=== PATIENT | male | born 2000 | race Caucasian/White ===

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

== ENCOUNTER 2023-04-27 09:50 | Emergency (ER) | payer MEDICARE, OTHER ==
[2023-04-27 10:10] VITALS: TEMP 98.9
[2023-04-27] MEDS ORDERED: DIPH,PERTUS(ACELL)TETVAC-LF 0.5 ML VIAL IM ONE (10:14)
[2023-04-27] MEDS ORDERED: ONDANSETRON ODT 4 MG TAB PO STA (10:17)
[2023-04-27] MEDS ORDERED: HYDROcodone/APAP 5-325MG 1 EACH TAB PO STA (10:17)
--- NOTE | 2023-04-27 10:52 | XR ---
EXAMINATION TYPE: XR finger RT DATE OF EXAM: 04/27/2023 COMPARISON: NONE HISTORY: 23-year-old male laceration right thumb, pain TECHNIQUE: 3 views coned down right thumb FINDINGS: Comminuted fracture involving the shaft of the first distal phalanx. There is a shard of bone measuri ng 4 mm Regional displacement into the dorsal soft tissues. Overlying nail bed injury suspected and should be correlated clinically. IMPRESSION: Comminuted fracture involving the shaft of the first distal phalanx. Regional displacement of a 4 mm bone fragment dorsally. Suspect overlying nail bed injury that can be correlated clinically.
[2023-04-27] MEDS ORDERED: ceFAZolin 1,000 MG VIAL (IM USE) IM STA (11:32)
[2023-04-27] MEDS ORDERED: LIDOCAINE 1% INJ 10MG/ML (20 ML MDV) SQ ONE (11:32)
--- NOTE | 2023-04-27 11:48 | ED ---
Wound/Laceration HPI - General Chief Complaint: Wound/Laceration Stated Complaint: IHS-R Hand LAC Time Seen by Provider: 04/27/23 10:07 Source: patient Mode of arrival: ambulatory Limitations: no limitations - History of Present Illness Initial Comments: The patient's a 23-year-old gentleman is otherwise healthy presents emergency room for laceration to the right distal thumb. 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 He has laceration that extends from the medial aspect through the nailbed and across. Patient has limitation with extension and flexion due to pain as well as immobility. Has numbness on the medial aspect and distal aspect of the finger. He is unsure if his tetanus is up-to-date. Patient is left-handed. This happened on the job however there does not have further cardiac testing or other specific evaluations. - Related Data Previous Rx's Medication Instructions Recorded Cephalexin [Keflex] 500 mg PO Q6HR #40 cap 04/27/23 HYDROcodone/APAP 10-325MG [[place] 1 tab PO Q6HR PRN 3 Days #12 tab 04/27/23 10-325] Allergies Allergy/AdvReac Type Severity Reaction Status Date / Time No Known Allergies Allergy Verified 04/27/23 09:58 Review of Systems ROS Statement: Those systems with pertinent positive or pertinent negative responses have been documented in the HPI. ROS Other: All systems not noted in ROS Statement are negative. Past Medical History Past Medical History: No Reported History History of Any Multi-Drug Resistant Organisms: None Reported Past Surgical History: No Surgical Hx Reported Past Psychological History: No Psychological Hx Reported Smoking Status: Never smoker Past Alcohol Use History: None Reported Past Drug Use History: None Reported General Exam Limitations: no limitations General appearance: alert, in no apparent distress Head exam: Present: atraumatic Eye exam: Present: normal appearance Cardiovascular Exam: Present: regular rate Extremities exam: Present: tenderness, other (Decreased sensation in the medial distal aspect of the right fifth finger. There is a 2.9 cm irregular laceration that extends from the medial aspect across the nailbed. No contused tissue. Decreased strength and range of motion with extension of the DIP. ). Absent: full ROM (fairly intact ROM and strength of DIP with flexion.) Neurological exam: Present: alert, oriented X3, CN II-XII intact Psychiatric exam: Present: normal affect, normal mood Skin exam: Present: warm Course Vital Signs 04/27/23 09:58 Temperature 98.9 F Pulse Rate 74 Respiratory 16 Rate Blood Pressure 137/81 O2 Sat by Pulse 100 Oximetry - Reevaluation(s) Reevaluation #1: Patient tolerated laceration repair well. Digital block was successful. His tetanus is updated today. I spoke with Dr. Newman who is on-call for Ortho regarding management of this patient. She recommended the sutures, flushing antibiotics and follow-up in her office this week. I did discuss all this with the patient she agrees upon. He was given the follow-up information. The patient was given IM Ancef in the emergency room prior to discharge. I discussed signs return to the emergency room. He understands [facility] treatment discharge plan. I discussed symptoms workup and disposition with attending ED physician Dr. Nance today. 04/27/23 1301 Procedures - Laceration Laceration #1 Consent Obtained: verbal consent Site: hand (1st distal phalanx) Description: irregular, contaminated Depth: simple, single layer, involves tendon Anesthetic Used: lidocaine 1% Anesthesia Technique: local infiltration, nerve block Pre-repair: irrigated extensively, wound margins revised, extreme cleansing Type of Sutures: nylon Size of Sutures: 4-0 Number of Sutures: 8 Technique: simple, interrupted Complications: bleeding Patient Tolerated Procedure: well Medical Decision Making - Medical Decision Making Was pt. sent in by a medical professional or institution ([facility], [facility], urgent care, hospital, or penitentiary...) When possible be specific @ -[No] Did you speak to anyone other than the patient for history (EMS, parent, family, police, friend...)? What history was obtained from this source @ -Family at bedside Did you review nursing and triage notes (agree or disagree)? Why? @ -[I reviewed and agree with nursing and triage notes] Were old charts reviewed (outside hosp., previous admission, EMS record, old EKG, old radiological studies, urgent care reports/EKG's, penitentiary records)? Report findings @ -[No old charts were reviewed] Differential Diagnosis (chest pain, altered mental status, abdominal pain women, abdominal pain men, vaginal bleeding, weakness, fever, dyspnea, syncope, headache, dizziness, GI bleed, back pain, seizure, CVA, palpatations, mental health, musculoskeletal)? @ -Laceration of the right distal first phalanx, open fracture of the first finger, tetanus vaccination, contusion of the first finger EKG interpreted by me (3pts min.). @ -[As above] X-rays interpreted by me (1pt min.). @ -Comminuted fracture of the right first distal phalanx, open fracture CT interpreted by me (1pt min.). @ -[None done] U/S interpreted by me (1pt. min.). @ -[None done] What testing was considered but not performed or refused? (CT, X-rays, U/S, labs)? Why? @ -[None] What meds were considered but not given or refused? Why? @ -[None] Did you discuss the management of the patient with other professionals (professionals i.e. , PA, LEVELMAN, lab, RT, psych nurse, oncology social work, relief manager, teacher, executive vice president and chief operating officer, showcase maker)? Give summary @ -I spoke with sap specialist carbon paper coating supervisor, Dr Newman, regarding management of this patient and follow up. the finger will be copiously flushed and loose sutures placed. the patient will be sent home with antibiotics and will follow up with Dr Newman this week. Was smoking cessation discussed for >3mins.? @ -[No] Was critical care preformed (if so, how long)? @ -[No] Were there social determinants of health that impacted care today? How? (Homelessness, low income, unemployed, alcoholism, drug addiction, transportation, low edu. Level, literacy, decrease access to med. care, fci, rehab)? @ -[No] Was there de-escalation of care discussed even if they declined (Discuss DNR or withdrawal of care, Hospice)? DNR status @ -[No] What co-morbidities impacted this encounter? (DM, HTN, Smoking, COPD, CAD, Cancer, CVA, ARF, Chemo, Hep., AIDS, mental health diagnosis, sleep apnea, morbid obesity)? @ -[None] Was patient admitted / discharged? Hospital course, mention meds given and route, prescriptions, significant lab abnormalities, going to OR and other pertinent info. @ -[the patient is stable to follow up as an outpatient. the patient will follwo up with dr newman this week in the office. he is written for antibiotics as an outpatient. he understands he is not to work or drive while taking pain medication. ] Undiagnosed new problem with uncertain prognosis? @ -[No] Drug Therapy requiring intensive monitoring for toxicity (Heparin, Nitro, Insulin, Cardizem)? @ -[No] Were any procedures done? @ -[No] Diagnosis/symptom? @ -[Open Fracture of the right 1st finger, comminuted fracture of the right distal phalanx, tetanus vaccination ,laceration of the right 1st finger Acute, or Chronic, or Acute on Chronic? @ -acute Uncomplicated (without systemic symptoms) or Complicated (systemic symptoms)? @ -[default] Side effects of treatment? @ -[No] Exacerbation, Progression, or Severe Exacerbation? @ -[No] Poses a threat to life or bodily function? How? (Chest pain, [place], [place], pneumonia, PE, COPD, DKA, ARF, appy, cholecystitis, CVA, Diverticulitis, Homicidal, Suicidal, threat to staff... and all critical care pts) @ -[yes - Radiology Data Radiology results: report reviewed, image reviewed Disposition Clinical Impression: Open fracture of finger of right hand, Laceration of left thumb, Nailbed injury, Tetanus toxoid vaccination administered at current visit Disposition: HOME SELF-CARE Condition: Fair Instructions (If sedation given, give patient instructions): Diphtheria/Tetanus Vaccine (By injection), Laceration (ED), Finger Fracture (ED), Tendon Laceration (ED) Additional Instructions: keep the finger as dry as possible. DO NOT WORK OR DRIVE WHILE TAKING PAIN MEDICATION FOLLOW UP WITH DR. NEWMAN THIS WEEK> SHE WILL BE EXPECTING TO SEE YOU Prescriptions: Cephalexin [Keflex] 500 mg PO Q6HR #40 cap HYDROcodone/APAP 10-325MG [[place] 10-325] 1 tab PO Q6HR PRN 3 Days #12 tab PRN Reason: Pain Is patient prescribed a controlled substance at d/c from ED?: Yes When asked, does pt state using other controlled substances?: No If prescribed controlled substance>3 days was MAPS reviewed?: Prescribed <3 Days Referrals: None,Stated [Primary Care Provider] - 1-2 days Kati Newman DO [Doctor of Osteopathic Medicine] - 1-2 days Time of Disposition: 13:07
[2023-04-27 13:52] VITALS: BP 126/70; PULSE 80; RESP 18
== END 2023-04-27 13:16 | disposition home or self-care (01) ==
LOC: EC 09:50
DX: S62.610B Displaced fracture of proximal phalanx of right index finger, initial encounter for open fracture (principal); Z23 Encounter for immunization; W26.8XXA Contact with other sharp object(s), not elsewhere classified, initial encounter
CPT/HCPCS: 73140; 90715; 99283; 90471; 96372; 12002; J0690; J2001